=== PATIENT | male | born 1955 | race Caucasian/White ===

== ENCOUNTER 2023-09-22 18:39 | Emergency (ER) | payer OTHER ==
[~2023-09-22] VITALS: Ht 170.2 cm; Wt 83.9 kg
[2023-09-22 18:58] VITALS: TEMP 98.4
[2023-09-22] MEDS ORDERED: CHLO25CA22 PO (21:40)
[2023-09-22] MEDS ORDERED: CHLORDIAZEPOXIDE HCL 25 MG CAPSULE ONE (21:50)
[2023-09-22] MEDS: CHLORDIAZEPOXIDE HCL 25 MG CAPSULE PO ONE (21:51)
[2023-09-22 21:54] VITALS: BP 144/77; O2SAT 98
== END 2023-09-22 21:55 ==
LOC: ER 18:45
DX: S62.511A Displaced fracture of proximal phalanx of right thumb, initial encounter for closed fracture (principal); S20.211A Contusion of right front wall of thorax, initial encounter; F10.129 Alcohol abuse with intoxication, unspecified; I10 Essential (primary) hypertension; J44.9 Chronic obstructive pulmonary disease, unspecified; R51.9 Headache, unspecified; Z79.899 Other long term (current) drug therapy; Z88.0 Allergy status to penicillin; Y90.3 Blood alcohol level of 60-79 mg/100 ml; V89.2XXA Person injured in unspecified motor-vehicle accident, traffic, initial encounter; Y93.89 Activity, other specified; Y92.89 Other specified places as the place of occurrence of the external cause; Y99.8 Other external cause status
CPT/HCPCS: 36415; 70450-TC; 71045-TC; 72125-TC; 73130-TC; G0480